=== PATIENT | male | born 1985 | race Caucasian/White ===

== ENCOUNTER 2017-04-11 01:16 | Emergency (ER) | payer BC ==
[2017-04-11 01:28] VITALS: BP 153/81
[2017-04-11] MEDS ORDERED: Sodium Chloride 0.9% 10 ML Syringe FLUSH PRN ×2 (01:47→02:11)
[2017-04-11] MEDS ORDERED: Ketorolac 30 MG/ML SDV IVPUSH ONE (01:49)
[2017-04-11] MEDS ORDERED: Iopamidol 612 MG/ML 100 ML Bottle IVPUSH ONE (02:11)
--- NOTE | 2017-04-11 02:58 | EDM.PDOC ---
ED HPI GENERAL MEDICAL PROBLEM - General Chief Complaint: ENT Problem Stated Complaint: LEFT SIDE THROAT/MOUTH PAIN Time Seen by Provider: 04/11/17 01:41 Source of Information: Reports: Patient History Limitations: Reports: No Limitations - History of Present Illness INITIAL COMMENTS - FREE TEXT/NARRATIVE: The patient presents with left throat pain. This started about 1 week ago. Four days ago he went to the walk in clinic and he was put on augmentin. He has not gotten any better. He says it hurts to swallow and it feels like there is something on the left side of his throat. He had a fever and chills. He has no chest pain or shortness of breath. He has no abdominal pain, nausea or vomiting. Onset: Gradual Duration: Week(s): (1) Location: Reports: Other (Throat) Quality: Reports: Sharp Severity: Moderate Improves with: Reports: None Worsens with: Reports: Other (swallowing) Associated Symptoms: Reports: Fever/Chills. Denies: Chest Pain, Cough, Nausea/ Vomiting, Shortness of Breath Throat Pain Score (Numeric/FACES): 8 - Related Data Allergies Allergy/AdvReac Type Severity Reaction Status Date / Time No Known Allergies Allergy Verified 04/11/17 01:27 Home Meds: Home Meds . [Unable to Verify Home Med List] 04/11/17 [History] Past Medical History Gastrointestinal History: Reports: GERD Psychiatric History: Reports: Anxiety, Depression - Past Surgical History Musculoskeletal Surgical History: Reports: Other (See Below) Other Musculoskeletal Surgeries/Procedures:: back surgery Social & Family History - Tobacco Use Smoking Status *Q: Current Every Day Smoker Years of Tobacco use: 20 Packs/Tins Daily: 0.5 - Caffeine Use Caffeine Use: Reports: Coffee - Recreational Drug Use Recreational Drug Use: No ED ROS ENT - Review of Systems Review Of Systems: See Below Constitutional: Reports: Fever, Chills HEENT: Reports: Throat Pain, Throat Swelling Respiratory: Reports: No Symptoms Cardiovascular: Reports: No Symptoms Endocrine: Reports: No Symptoms GI/Abdominal: Reports: No Symptoms : Reports: No Symptoms Musculoskeletal: Reports: No Symptoms Skin: Reports: No Symptoms ED EXAM, ENT - Physical Exam Exam: See Below Exam Limited By: No Limitations General Appearance: Alert, No Apparent Distress Ears: Normal External Exam, Normal Canal, Hearing Grossly Normal, Normal TMs Nose: Normal Inspection Mouth/Throat: Pharyngeal Erythema, Tonsillar Erythema, Tonsillar Exudates, Tonsillar Swelling Head: Atraumatic, Normocephalic Neck: Lymphadenopathy (L) Respiratory/Chest: No Respiratory Distress, Lungs Clear, Normal Breath Sounds Cardiovascular: Regular Rate, Rhythm, No Edema, No Murmur GI/Abdominal: Soft, Non-Tender, No Organomegaly, No Mass Back: Normal Inspection Extremities: Normal Inspection Course - Vital Signs Last Recorded V/S: Last Vital Signs Temp 98.3 F 04/11/17 01:24 Pulse 68 04/11/17 01:24 Resp 16 04/11/17 01:24 BP 153/81 H 04/11/17 01:24 Pulse Ox 99 04/11/17 01:24 - Orders/Labs/Meds Orders: Active Orders 24 hr Category Date Time Status Peripheral IV Care [RC] . DIRECTED Care 04/11/17 01:47 Active Soft Tissue Neck w Cont [CT] Stat Exams 04/11/17 01:48 Taken CULTURE STREP A CONFIRMATION [] Stat Lab 04/11/17 02:02 Results STREP SCRN A RAPID W CULT CONF [] Stat Lab 04/11/17 02:02 Results Sodium Chloride 0.9% [Saline Flush] Med 04/11/17 01:47 Active 10 ml FLUSH ASDIRECTED PRN Sodium Chloride 0.9% [Saline Flush] Med 04/11/17 02:11 Active 10 ml FLUSH ONETIME PRN Peripheral IV Insertion Adult [OM.PC] Stat Oth 04/11/17 01:47 Ordered Medication Orders Sodium Chloride (Saline Flush) 10 ml FLUSH ASDIRECTED PRN PRN Reason: Keep Vein Open Last Admin: 04/11/17 01:59 Dose: 10 ml Sodium Chloride (Saline Flush) 10 ml FLUSH ONETIME PRN PRN Reason: IV FLUSH Last Admin: 04/11/17 02:18 Dose: 10 ml Labs: Laboratory Tests 04/11/17 04/11/17 04/11/17 Range/Units 02:05 02:05 02:05 WBC 7.28 (4.23-9.07) K/mm3 RBC 4.61 L (4.63-6.08) M/mm3 Hgb 14.2 (13.7-17.5) gm/L Hct 40.8 (40.1-51.0) % MCV 88.5 (79.0-92.2) fl MCH 30.8 (25.7-32.2) pg MCHC 34.8 (32.2-35.5) g/dl RDW Std Deviation 43.5 (35.1-43.9) fL Plt Count 245 (163-337) K/mm3 MPV 9.2 L (9.4-12.3) fl Neut % (Auto) 54.3 (34.0-67.9) % Lymph % (Auto) 32.8 (21.8-53.1) % Sargent % (Auto) 9.2 (5.3-12.2) % Eos % (Auto) 3.0 (0.8-7.0) Baso % (Auto) 0.4 (0.1-1.2) % Neut # (Auto) 3.95 (1.78-5.38) K/mm3 Lymph # (Auto) 2.39 (1.32-3.57) K/mm3 Sargent # (Auto) 0.67 (0.30-0.82) K/mm3 Eos # (Auto) 0.22 (0.04-0.54) K/mm3 Baso # (Auto) 0.03 (0.01-0.08) K/mm3 Sodium 143 (136-145) mEq/L Potassium 3.9 (3.5-5.1) mEq/L Chloride 108 H (98-107) mEq/L Carbon Dioxide 26 (21-32) mEq/L Anion Gap 12.9 (5-15) BUN 14 (7-18) mg/dL Creatinine 1.1 (0.7-1.3) mg/dL Est Cr Clr Drug Dosing 104.84 mL/min Estimated GFR (MDRD) > 60 (>60) mL/min BUN/Creatinine Ratio 12.7 L (14-18) Glucose 111 H (74-106) mg/dL Calcium 8.8 (8.5-10.1) mg/dL Total Bilirubin 0.3 (0.2-1.0) mg/dL AST 22 (15-37) U/L ALT 52 (16-63) U/L Alkaline Phosphatase 59 (46-116) U/L C-Reactive Protein 1.1 H* (<1.0) mg/dL Total Protein 6.8 (6.4-8.2) g/dl Albumin 3.4 (3.4-5.0) g/dl Globulin 3.4 gm/dL Albumin/Globulin Ratio 1.0 (1-2) Monoscreen Negative (NEGATIVE) Meds: Medications Generic Name Dose Route Start Last Admin Trade Name Kevin PRN Reason Stop Dose Admin Sodium Chloride 10 ml 04/11/17 01:47 04/11/17 01:59 Saline Flush FLUSH 10 ml ASDIRECTED PRN Administration Keep Vein Open Sodium Chloride 10 ml 04/11/17 02:11 04/11/17 02:18 Saline Flush FLUSH 10 ml ONETIME PRN Administration IV FLUSH Discontinued Medications Generic Name Dose Route Start Last Admin Trade Name Freq PRN Reason Stop Dose Admin Iopamidol 100 ml 04/11/17 02:11 04/11/17 02:18 Isovue-300 (61%) IVPUSH 04/11/17 02:12 100 ml ONETIME ONE Administration Ketorolac Tromethamine 30 mg 04/11/17 01:49 04/11/17 01:59 Toradol IVPUSH 04/11/17 01:50 30 mg ONETIME ONE Administration - Re-Assessments/Exams Free Text/Narrative Re-Assessment/Exam: 04/11/17 02:52 I ordered an IV saline lock, toradol 30mg IV, labs, rapid strep and CT of the soft tissue of his neck. 04/11/17 02:53 His CBC is negative. His CMP looks good. His CRP was elevated to 1.1. His mono and strep were negative. His CT shows a normal neck CT. I will have him continue with the antibiotics and get him something for pain. Departure - Departure Time of Disposition: 03:00 Disposition: Home, Self-Care 01 Condition: Good Clinical Impression: Pharyngitis Qualifiers: Pharyngitis/tonsillitis etiology: other specified organisms Qualified Code(s): J02.8 - Acute pharyngitis due to other specified organisms - Discharge Information Referrals: PCP,None [Primary Care Provider] - Derek Maza PA-C [Physician Emergency Communications Dispatcher] - 1 Week Additional Instructions: Continue to take the augmentin. Take the hydrocodone every 6 hours as needed for pain. Please return if you are worse. - My Orders Last 24 Hours: My Active Orders 04/11/17 01:47 Peripheral IV Care [RC] . DIRECTED Sodium Chloride 0.9% [Saline Flush] 10 ml FLUSH ASDIRECTED PRN Peripheral IV Insertion Adult [OM.PC] Stat 04/11/17 01:48 Soft Tissue Neck w Cont [CT] Stat 04/11/17 02:02 CULTURE STREP A CONFIRMATION [RM] Stat STREP SCRN A RAPID W CULT CONF [RM] Stat 04/11/17 02:11 Sodium Chloride 0.9% [Saline Flush] 10 ml FLUSH ONETIME PRN - Assessment/Plan Last 24 Hours: My Active Orders 04/11/17 01:47 Peripheral IV Care [RC] . DIRECTED Sodium Chloride 0.9% [Saline Flush] 10 ml FLUSH ASDIRECTED PRN Peripheral IV Insertion Adult [OM.PC] Stat 04/11/17 01:48 Soft Tissue Neck w Cont [CT] Stat 04/11/17 02:02 CULTURE STREP A CONFIRMATION [RM] Stat STREP SCRN A RAPID W CULT CONF [RM] Stat 04/11/17 02:11 Sodium Chloride 0.9% [Saline Flush] 10 ml FLUSH ONETIME PRN
--- NOTE | 2017-04-11 08:10 | CT ---
CT neck Technique: Multiple axial sections were obtained through the neck. Intravenous contrast was utilized. Reconstructed coronal and sagittal images were reviewed. Findings: Parotid salivary glands and submandibular salivary glands appear within normal limits. Scattered normal-appearing lymph nodes are seen throughout the neck. Visualized sinuses are clear. Right and left globes are symmetric. Peritonsillar soft tissues are symmetric between right and left sides. No findings of abscess are seen within the parapharyngeal soft tissues. No neck mass is seen. Bone window settings were reviewed which appear within normal limits for the patient's age. Impression: 1. No abnormality is identified on CT study of the neck. Nothing acute is appreciated. Diagnostic code #1 Agree with preliminary report issued by [employer] ([employer] preliminary report dictated on 04/11/17, 3:26 AM Central Time)
== END 2017-04-11 03:12 | disposition home or self-care (01) ==
LOC: JD.ED 01:16
DX: J02.8 Acute pharyngitis due to other specified organisms (principal); K21.9 Gastro-esophageal reflux disease without esophagitis; F17.210 Nicotine dependence, cigarettes, uncomplicated
CPT/HCPCS: 36415; 70491; 80053; 85025; 86140; 86308; 87081; 87430; 96374; 99283; J1885; J7050; Q9967